=== PATIENT | female | born 1985 | race Hispanic/Latino ===

== ENCOUNTER 2019-07-12 19:41 | Emergency (ER) | payer OTHER, SELFPAY ==
[2019-07-12] MEDS ORDERED: NA CHLORIDE 0.9% 1,000 ML ONE (20:19)
[2019-07-12] MEDS ORDERED: FENTANYL CITR 100 MCG/2 ML ONE (20:41)
[2019-07-12] MEDS ORDERED: CEFTRIAXONE/SWI 1gm 1 GM/10 ML SYR ONE (20:54)
[2019-07-12 20:59] LABS: Absolute Lymphocytes (CBC) 3.1 K/uL (0.7-4.9); Basophils % 0.1 % (0-1.3); Lymphocytes % 29.1 % (15.3-44.8); MPV 7.3 fL (7.6-11.3); RBC Red Blood Cell Count 4.47 M/uL (3.86-4.86)
[2019-07-12 21:06] LABS: Urine Bacteria >50 /HPF (<20); Urine Culture Reflex Order NOT NEEDED
[2019-07-12 21:08] LABS: ALT/SGPT 19 U/L (12-78); AST/SGOT 11 U/L (15-37); Albumin 3.6 g/dL (3.4-5.0); Alkaline Phosphatase 127 U/L (45-117); BUN Blood Urea Nitrogen 13 mg/dL (7-18); Bicarbonate 31 mmol/L (21-32); Bilirubin Direct < 0.1 mg/dL (0-0.2); Bilirubin Total 0.2 mg/dL (0.2-1.0); Glucose Level 88 mg/dL (74-106); Lipase 129 U/L (73-393); Potassium 3.6 mmol/L (3.5-5.1); Protein, Total 7.9 g/dL (6.4-8.2); Sodium Level 139 mmol/L (136-145)
[2019-07-12 22:48] LABS: Urine Blood 1+ (NEG); Urine Glucose NEGATIVE (NEG); Urine Protein TRACE (NEG); Urine Specific Gravity >1.030 (1.005-1.030)
--- NOTE | 2019-07-13 00:33 | ER ---
Nurse's Notes [facility] Name: Geeta Lancaster Age: 34 yrs Sex: Female : 1985 Arrival Date: 07/12/2019 Time: 19:55 Bed 20 Private MD: Diagnosis: Lower abdominal pain, unspecified;Urinary tract infection, site not specified Presentation: 07/12 19:58 Presenting complaint: Patient states: Right sided abdominal pain, she went to a clinic aj1 and told her to go to the ER. Transition of care: patient was not received from another setting of care. Onset of symptoms was July 12, 2019. Risk Assessment: Do you want to hurt yourself or someone else? Patient reports no desire to harm self or others. Initial Sepsis Screen: Does the patient meet any 2 criteria? No. Patient's initial sepsis screen is negative. Does the patient have a suspected source of infection? No. Patient's initial sepsis screen is negative. Care prior to arrival: None. 19:58 Method Of Arrival: Ambulatory [facility] 19:58 Acuity: NGOC 3 aj1 Triage Assessment: 20:02 General: Appears in no apparent distress. comfortable, Behavior is calm, cooperative, aj1 appropriate for age. Pain: Complains of pain in abdomen. Neuro: Level of Consciousness is awake, alert, obeys commands. Cardiovascular: Patient's skin is warm and dry. Respiratory: Airway is patent Respiratory effort is even, unlabored, Respiratory pattern is regular, symmetrical. GI: Reports abdominal pain. 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 - Coronavirus screen:: The patient has NOT traveled to [place] in the past 14 days. - Social history:: Smoking status: Patient reports the use of cigarette tobacco products, denies chronic smoking, but will smoke occasionally. - Ebola Screening: : Patient denies travel to an Ebola-affected area in the 21 days before illness onset. Screenin:10 Abuse screen: Denies threats or abuse. Denies injuries from another. Nutritional hb screening: No deficits noted. Tuberculosis screening: No symptoms or risk factors identified. Fall Risk None identified. Assessment: 20:25 General: Appears in no apparent distress. Behavior is calm, cooperative. Pain: Pain hb currently is 8 out of 10 on a pain scale. Neuro: Level of Consciousness is awake, alert, obeys commands, Oriented to person, place, time. Cardiovascular: Capillary refill < 3 seconds Patient's skin is warm and dry. Respiratory: Airway is patent Respiratory effort is even, unlabored, Respiratory pattern is regular, symmetrical. GI: Abdomen is obese, Bowel sounds present X 4 quads. Abd is soft X 4 quads Abdomen is tender to palpation RUQ, LUQ. : No signs and/or symptoms were reported regarding the genitourinary system. EENT: No signs and/or symptoms were reported regarding the EENT system. Derm: Skin is intact, is healthy with good turgor, Skin is pink, warm \T\ dry. Musculoskeletal: No signs and/or symptoms reported regarding the musculoskeletal system. 20:46 Reassessment: Pt finished drinking oral contrast, Shira in CT notfied. hb 21:30 Reassessment: Patient appears in no apparent distress at this time. Patient and/or hb family updated on plan of care and expected duration. Pain level reassessed. Patient is alert, oriented x 3, equal unlabored respirations, skin warm/dry/pink. 22:30 Reassessment: Patient appears in no apparent distress at this time. Patient and/or hb family updated on plan of care and expected duration. Pain level reassessed. Patient is alert, oriented x 3, equal unlabored respirations, skin warm/dry/pink. 23:30 Reassessment: Pt resting with eyes closed, NAD. Daughter at bedside. Awaiting CT hb results at this time. 07/13 00:43 Reassessment: Patient appears in no apparent distress at this time. Patient and/or hb family updated on plan of care and expected duration. Pain level reassessed. Patient is alert, oriented x 3, equal unlabored respirations, skin warm/dry/pink. Vital Signs: 07/12 20:02 BP 111 / 88; Pulse 87; Resp 17; Temp 97.6; Pulse Ox 98% on R/A; Weight 98.88 kg (R); aj1 Height 5 ft. 0 in. (152.40 cm) (R); 21:00 BP 105 / 57; Pulse 85; Resp 16; Pulse Ox 100% ; Pain 5/10; hb 21:45 BP 104 / 74; Pulse 78; Resp 16; Pulse Ox 97% on R/A; hb 22:30 BP 98 / 62; Pulse 76; Resp 15; Pulse Ox 100% on R/A; Pain 3/10; hb 23:30 BP 106 / 68; Pulse 74; Resp 16; Pulse Ox 99% on R/A; hb 07/13 00:30 BP 104 / 66; Pulse 75; Resp 14; Temp 98.2; Pulse Ox 99% on R/A; hb 07/12 20:02 Body Mass Index 42.57 (98.88 kg, 152.40 cm) aj1 ED Course: 07/12 19:55 Patient arrived in ED. mr 20:01 Triage completed. aj1 20:02 Arm band placed on Patient placed in an exam room. aj1 20:05 Kim Anderson FNP-C is PHCP. snw 20:05 Kyle Fiath MD is Attending Physician. snw 20:09 Amaya Hair, RJ is Primary Nurse. hb 20:10 Patient has correct armband on for positive identification. Bed in low position. Call hb light in reach. Side rails up X 1. 20:26 Missed attempt(s): 20 gauge in right antecubital area. Bleeding controlled, band aid hb applied, catheter tip intact. 20:28 Inserted saline lock: 22 gauge in right antecubital area, using aseptic technique. hb Blood collected. 23:55 Urine Culture Sent. hb 23:55 Urine Microscopic Only Sent. hb 23:55 Urine Dipstick--Ancillary (enter results) Sent. hb 23:55 Urine --Ancillary (enter results) Sent. hb 07/13 00:44 No provider procedures requiring assistance completed. IV discontinued, intact, hb bleeding controlled, No redness/swelling at site. Pressure dressing applied. Administered Medications: 07/12 20:29 Drug: NS 0.9% 1000 ml Route: IV; Rate: 125 ml/hr; Site: right antecubital; hb 20:39 Drug: fentaNYL (PF) 25 mcg Route: IVP; Site: right antecubital; hb 21:02 Follow up: Response: No adverse reaction; Pain is decreased; RASS: Alert and Calm (0) hb 20:50 Drug: Rocephin 1 grams Route: IV; Rate: calculated rate; Site: right antecubital; hb 07/13 00:43 Follow up: Response: No adverse reaction; IV Status: Completed infusion; IV Intake: 10mlhb Intake: 00:43 IV: 10ml; Total: 10ml. hb Outcome: 00:31 Discharge ordered by . zane 00:44 Discharged to home ambulatory. hb 00:44 Condition: stable 00:44 Discharge instructions given to patient, Instructed on discharge instructions, follow up and referral plans. medication usage, Demonstrated understanding of instructions, follow-up care, medications, Prescriptions given X 2. 00:58 Patient left the ED. hb Addendum: 07/15/2019 07:18 Addendum: Culture Results: Positive urine culture. No further action required. Bacteria i w sensitive to prescribed antibiotic. Signatures: Karla Barnes RN RN aj1 Kim Anderson, MAKE UP OPERATOR-C MAKE UP OPERATOR-Csnw Khushi Cabrera mr Gwendolyn Olsen RN RN iw Amaya Hair RN RN Corrections: (The following items were deleted from the chart) 07/12 20:34 20:28 Inserted saline lock: 20 gauge in right antecubital area, using aseptic hb technique. Blood collected. hb 20:41 20:25 Pain: Pain currently is 5 out of 10 on a pain scale. hb hb
--- NOTE | 2019-07-13 00:34 | EDPHYS ---
Physician Documentation [facility] Name: Geeta Lancaster Age: 34 yrs Sex: Female : 1985 Arrival Date: 07/12/2019 Time: 19:55 Bed 20 Private MD: ED Physician Kyle Faith HPI: 07/12 20:23 This 34 yrs old Female presents to ER via Ambulatory with complaints of Abdominal Pain. snw 20:23 The patient presents with abdominal pain in the right upper quadrant, right lower snw quadrant. Onset: The symptoms/episode began/occurred suddenly, today. The symptoms do not radiate. Associated signs and symptoms: none. The symptoms are described as constant. Modifying factors: The symptoms are alleviated by nothing, the symptoms are aggravated by touching the area. Severity of pain: At its worst the pain was moderate. The patient has not experienced similar symptoms in the past. The patient has been recently seen by a physician: the patient's primary care provider, with similar presenting complaints, and was sent to the [facility] Emergency Department for further evaluation. LMP finished 1-2 days ago. PROVIDER SCRIBE: 20:02 LMP N/A - Hysterectomy aj1 Historical: - Allergies: 20:02 No Known Allergies; aj1 - Home Meds: 20:02 None [Active]; aj1 - PMHx: 20:02 None; aj1 - Immunization history:: Flu vaccine is not up to date. - Coronavirus screen:: The patient has NOT traveled to [place] in the past 14 days. - Social history:: Smoking status: Patient reports the use of cigarette tobacco products, denies chronic smoking, but will smoke occasionally. - Ebola Screening: : Patient denies travel to an Ebola-affected area in the 21 days before illness onset. ROS: 20:22 Constitutional: Negative for fever, chills, and weight loss, Eyes: Negative for injury, snw pain, redness, and discharge, ENT: Negative for injury, pain, and discharge, Neck: Negative for injury, pain, and swelling, Cardiovascular: Negative for chest pain, palpitations, and edema, Respiratory: Negative for shortness of breath, cough, wheezing, and pleuritic chest pain, Back: Negative for injury and pain, : Negative for injury, bleeding, discharge, and swelling, MS/Extremity: Negative for injury and deformity, Skin: Negative for injury, rash, and discoloration, Neuro: Negative for headache, weakness, numbness, tingling, and seizure, Psych: Negative for depression, anxiety, suicide ideation, homicidal ideation, and hallucinations. 20:22 Abdomen/GI: Positive for abdominal pain, Negative for nausea, vomiting, and diarrhea. Exam: 20:22 Constitutional: This is a well developed, well nourished patient who is awake, alert, snw and in no acute distress. Head/Face: Normocephalic, atraumatic. Eyes: Pupils equal round and reactive to light, extra-ocular motions intact. Lids and lashes normal. Conjunctiva and sclera are non-icteric and not injected. Cornea within normal limits. Periorbital areas with no swelling, redness, or edema. ENT: Nares patent. No nasal discharge, no septal abnormalities noted. Tympanic membranes are normal and external auditory canals are clear. Oropharynx with no redness, swelling, or masses, exudates, or evidence of obstruction, uvula midline. Mucous membranes moist. Neck: Trachea midline, no thyromegaly or masses palpated, and no cervical lymphadenopathy. Supple, full range of motion without nuchal rigidity, or vertebral point tenderness. No Meningismus. Chest/axilla: Normal chest wall appearance and motion. Nontender with no deformity. No lesions are appreciated. Cardiovascular: Regular rate and rhythm with a normal S1 and S2. No gallops, murmurs, or rubs. Normal PMI, no JVD. No pulse deficits. Respiratory: Lungs have equal breath sounds bilaterally, clear to auscultation and percussion. No rales, rhonchi or wheezes noted. No increased work of breathing, no retractions or nasal flaring. Back: No spinal tenderness. No costovertebral tenderness. Full range of motion. Skin: Warm, dry with normal turgor. Normal color with no rashes, no lesions, and no evidence of cellulitis. MS/ Extremity: Pulses equal, no cyanosis. Neurovascular intact. Full, normal range of motion. Neuro: Awake and alert, GCS 15, oriented to person, place, time, and situation. Cranial nerves II-XII grossly intact. Motor strength 5/5 in all extremities. Sensory grossly intact. Cerebellar exam normal. Normal gait. Psych: Awake, alert, with orientation to person, place and time. Behavior, mood, and affect are within normal limits. 20:22 Abdomen/GI: Inspection: obese Bowel sounds: normal, Palpation: moderate abdominal tenderness, in the right upper quadrant and right lower quadrant. Vital Signs: 20:02 BP 111 / 88; Pulse 87; Resp 17; Temp 97.6; Pulse Ox 98% on R/A; Weight 98.88 kg (R); aj1 Height 5 ft. 0 in. (152.40 cm) (R); 21:00 BP 105 / 57; Pulse 85; Resp 16; Pulse Ox 100% ; Pain 5/10; hb 21:45 BP 104 / 74; Pulse 78; Resp 16; Pulse Ox 97% on R/A; hb 22:30 BP 98 / 62; Pulse 76; Resp 15; Pulse Ox 100% on R/A; Pain 3/10; hb 23:30 BP 106 / 68; Pulse 74; Resp 16; Pulse Ox 99% on R/A; hb 07/13 00:30 BP 104 / 66; Pulse 75; Resp 14; Temp 98.2; Pulse Ox 99% on R/A; hb 07/12 20:02 Body Mass Index 42.57 (98.88 kg, 152.40 cm) aj1 MDM: 07/12 20:13 Patient medically screened. snw 22:16 Data reviewed: vital signs, nurses notes. Data interpreted: Pulse oximetry: on room air snw is 97 %. Interpretation: normal. Counseling: I had a detailed discussion with the patient and/or guardian regarding: the historical points, exam findings, and any diagnostic results supporting the discharge/admit diagnosis, lab results, radiology results. ED course: GB ultrasound normal . 07/12 20:11 Order name: Basic Metabolic Panel [facility] 07/12 20:11 Order name: CBC with Diff [facility] 07/12 20:11 Order name: Hepatic Function w 07/12 20:11 Order name: Lipase [facility] 07/12 20:11 Order name: Urine Culture [facility] 07/12 20:11 Order name: Urine Microscopic Only [facility] 07/12 20:39 Order name: Urine Dipstick--Ancillary (enter results) [facility] 07/12 20:39 Order name: Urine --Ancillary (enter results) [facility] 07/12 21:42 Order name: CBC with Automated Diff; Complete Time: 21:44 EDMS 07/12 21:42 Order name: Urine Microscopic Only; Complete Time: 21:44 EDMS 07/12 21:42 Order name: Basic Metabolic Panel; Complete Time: 21:44 EDMS 07/12 21:42 Order name: Liver (Hepatic) Function; Complete Time: 21:44 EDMS 07/12 21:42 Order name: Lipase; Complete Time: 21:44 EDMS 07/12 21:47 Order name: Urine Culture ED07/12 20:11 Order name: IV Saline Lock; Complete Time: 20:29 snw 07/12 20:11 Order name: Labs collected and sent; Complete Time: 20:29 w 07/12 20:11 Order name: NPO; Complete Time: 20:19 w 07/12 20:11 Order name: Urine Dipstick-Ancillary (obtain specimen); Complete Time: 20:29 w 07/12 20:11 Order name: Urine Test (obtain specimen); Complete Time: 20:36 w 07/12 20:19 Order name: CT Abd/Pelvis - PO and IV Contrast w 07/12 20:19 Order name: US Abdomen Limited w 07/12 22:50 Order name: Urine --Ancillary; Complete Time: 22:58 EDMS 07/12 22:50 Order name: Urine Dipstick-Ancillary; Complete Time: 22:58 EDMS Administered Medications: 20:29 Drug: NS 0.9% 1000 ml Route: IV; Rate: 125 ml/hr; Site: right antecubital; hb 20:39 Drug: fentaNYL (PF) 25 mcg Route: IVP; Site: right antecubital; hb 21:02 Follow up: Response: No adverse reaction; Pain is decreased; RASS: Alert and Calm (0) hb 20:50 Drug: Rocephin 1 grams Route: IV; Rate: calculated rate; Site: right antecubital; hb 07/13 00:43 Follow up: Response: No adverse reaction; IV Status: Completed infusion; IV Intake: 10mlhb Disposition: 01:05 Co-signature as Attending Physician, Kyle Faith MD I agree with the assessment and kdr plan of care. Disposition: 07/13/19 00:31 Discharged to Home. Impression: Lower abdominal pain, unspecified, Urinary tract infection, site not specified. - Condition is Stable. - Discharge Instructions: Abdominal Pain, Adult, Urinary Tract Infection, Adult, Rehydration, Adult. - Prescriptions for Augmentin 875- 125 mg Oral Tablet - take 1 tablet by ORAL route every 12 hours for 10 days; 20 tablet. Diclofenac Sodium 75 mg Oral Tablet Sustained Release - take 1 tablet by ORAL route 2 times per day; 30 tablet. - Work release form, Medication Reconciliation Form, Thank You Letter, Antibiotic Education, Prescription Opioid Use form. - Follow up: Emergency Department; When: As needed; Reason: Worsening of condition. Follow up: Private Physician; When: 2 - 3 days; Reason: Recheck today's complaints, Continuance of care, Re-evaluation by your physician. Signatures: Dispatcher [employer] Karla Pavon RN RN aj1 Kyle Faith MD MD kdr Kim Anderson, LICENSED APPRAISER-C LICENSED APPRAISER-Csnw Amaya Hair RN RN hb Corrections: (The following items were deleted from the chart) 00:58 00:31 07/13/2019 00:31 Discharged to Home. Impression: Lower abdominal pain, hb unspecified; Urinary tract infection, site not specified. Condition is Stable. Forms are Medication Reconciliation Form, Thank You Letter, Antibiotic Education, Prescription Opioid Use. Follow up: Emergency Department; When: As needed; Reason: Worsening of condition. Follow up: Private Physician; When: 2 - 3 days; Reason: Recheck today's complaints, Continuance of care, Re-evaluation by your physician. snw
[2019-07-13 01:17] VITALS: O2SAT 99
[2019-07-13 01:18] VITALS: BP 104/66; TEMP 98.2
--- NOTE | 2019-07-13 08:48 | RAD REPORT ---
EXAM DESCRIPTION: US - Abdomen Exam Limited - 07/12/2019 10:20 pm CLINICAL HISTORY: ABD PAIN COMPARISON: No comparisons FINDINGS: No gallstones, sludge or other abnormalities within the gallbladder lumen. There is no wal l thickening or pericholecystic fluid. No common duct stone or biliary tree dilatation identified. Preliminary findings provided at the time of the study. IMPRESSION: Normal gallbladder and biliary tree ultrasound.
--- NOTE | 2019-07-14 11:36 | RAD REPORT ---
EXAM DESCRIPTION: CT - Abdomen Pelvis W Contrast - 07/13/2019 2:33 am COMPARISON: None CLINICAL HISTORY: Abdominal pain TECHNIQUE: Multiple helical axial images were obtained through the abdomen and pelvis using intraven ous contrast. Coronal and sagittal reformatted images were obtained. All CT scans at this facility use dose modulation, iterative reconstruction, and/or weight-based dosi ng when appropriate to reduce radiation dose to as low as reasonably achievable. FINDINGS: Lung bases: Appear unremarkable. Liver: Liver appears large and demonstrates slight low attenuation suggestive of fatty changes. Gallbladder/biliary: Appears unremarkable Pancreas: Unremarkable. No evidence of ductal enlargement. Spleen: Appears unremarkable. No splenomegaly. Adrenals: Unremarkable. Kidneys and ureters: No evidence of hydronephrosis. Normal enhancement. There is a possible [address] one in the upper pole of the right kidney. Bladder: Unremarkable. Pelvic organs: Unremarkable. Bowel: No evidence of bowel obstruction. No bowel wall thickening. Appendix appears unremarkable. Vasculature: Unremarkable. Peritoneum: No free air. No significant free fluid. Lymph nodes: Unremarkable. Soft tissues: Tiny fat-containing umbilical hernia is present. Bones: Unremarkable. IMPRESSION: No evidence for an acute process within the abdomen or pelvis. Electronically signed by: Carlos Pineda MD 07/13/2019 12:21 AM ELECTRONIC MASKING SYSTEM OPERATOR Due to temporary technical issues with the PACS/Fluency reporting system, reports are being signed by the in house radiologist as a courtesy to ensure prompt reporting. The interpreting radiologist is f ully responsible for the content of the report.
== END 2019-07-13 00:58 | disposition home or self-care (01) ==
LOC: ER 19:41
DX: N39.0 Urinary tract infection, site not specified (principal); Z72.0 Tobacco use
CPT/HCPCS: 36415; 74177; 76705; 80048; 80076; 81003; 81015; 81025; 83690; 85025; 87077; 87086; 87088; 87186; 96365; 96366; 96375; 99284; J0696; J3010; J7030; Q9967